=== PATIENT | male | born 1975 | race Hispanic/Latino ===

== ENCOUNTER 2018-09-09 09:11 | Emergency (ER) | payer SELFPAY ==
--- NOTE | 2018-09-09 11:03 | RAD REPORT ---
EXAM DESCRIPTION: RAD - Foot Left 3 View - 09/09/2018 10:54 am CLINICAL HISTORY: Foot pain following blunt force trauma to the plantar surface of the foot COMPARISON: None. FINDINGS: No fracture, dislocation or periosteal reaction. No acute or destructive bony process. No air or foreign body in the soft tissues. IMPRESSION: No acute bone or joint finding. No foreign body.
--- NOTE | 2018-09-09 11:24 | ER ---
Nurse's Notes [facility] Name: Shahzad Spangler Age: 43 yrs Sex: Male : 1975 Arrival Date: 09/09/2018 Time: 09:16 Bed 10 Private MD: Diagnosis: Other sprain of left foot Presentation: 09/09 09:33 Presenting complaint: Patient states: i stepped on a rock this morning and hurt my L hj foot; on the top of the foot;. Transition of care: patient was not received from another setting of care. Onset of symptoms was September 09, 2018. Risk Assessment: Do you want to hurt yourself or someone else? Patient reports no desire to harm self or others. Initial Sepsis Screen: Does the patient meet any 2 criteria? No. Patient's initial sepsis screen is negative. Does the patient have a suspected source of infection? No. Patient's initial sepsis screen is negative. Care prior to arrival: None. 09:33 Method Of Arrival: Ambulatory 09:33 Acuity: TERRY 4 hj Triage Assessment: 09:35 General: Appears in no apparent distress. uncomfortable, Behavior is calm, cooperative, hj appropriate for age. Pain: Complains of pain in left foot Pain currently is 8 out of 10 on a pain scale. Historical: - Allergies: 09:35 No Known Allergies; hj - Home Meds: 09:35 None [Active]; hj - PMHx: 09:35 None; hj - PSHx: 09:35 abdominal surgery; hj - Immunization history:: Adult Immunizations up to date. - Social history:: Smoking status: Patient uses tobacco products, 1 pack per week;, Patient uses alcohol, weekly. - Ebola Screening: : Patient negative for fever greater than or equal to 101.5 degrees Fahrenheit, and additional compatible Ebola Virus Disease symptoms Patient denies exposure to infectious person Patient denies travel to an Ebola-affected area in the 21 days before illness onset. Screenin:36 Abuse screen: Denies threats or abuse. Denies injuries from another. Nutritional hj screening: No deficits noted. Tuberculosis screening: No symptoms or risk factors identified. Fall Risk None identified. Assessment: 09:43 General: Appears in no apparent distress. Behavior is calm, cooperative. Pain: iw Complains of pain in left foot. Neuro: Level of Consciousness is awake, alert, obeys commands, Oriented to person, place, time, situation. Cardiovascular: Patient's skin is warm and dry. Respiratory: Respiratory effort is even, unlabored, Respiratory pattern is regular. Derm: Skin is intact, is healthy with good turgor. Musculoskeletal: Reports pain in left foot. Vital Signs: 09:36 BP 134 / 98; Pulse 76; Resp 18; Temp 98.8(TE); Pulse Ox 100% on R/A; Weight 97.52 kg; hj Height 5 ft. 10 in. (177.80 cm); Pain 9/10; 09:36 Body Mass Index 30.85 (97.52 kg, 177.80 cm) hj ED Course: 09:16 Patient arrived in ED. as 09:34 Triage completed. hj 09:36 Arm band placed on right wrist. hj 09:36 Patient has correct armband on for positive identification. Bed in low position. Call hj light in reach. Side rails up X 1. 09:42 Sarah Vital RN is Primary Nurse. iw 09:45 Josefina Miller F[facility]-C is [facility]. kb 09:45 Jan Rivera MD is Attending Physician. kb 10:49 X-ray completed. Portable x-ray completed in exam room. Patient tolerated procedure ls3 well. 10:54 Foot Left 3 View XRAY In Process Unspecified. EDMS 11:32 No provider procedures requiring assistance completed. Patient did not have IV access iw during this emergency room visit. Administered Medications: No medications were administered Outcome: 11:23 Discharge ordered by MD. kb 11:32 Discharged to home ambulatory. iw 11:32 Condition: good 11:32 Discharge instructions given to patient, Instructed on discharge instructions, follow up and referral plans. medication usage, Demonstrated understanding of instructions, follow-up care, medications, Prescriptions given X 1. 11:33 Patient left the ED. iw Signatures: Dispatcher [employer] EDMS Josefina Miller FNP-C FNP-Beverly Torres as Sarah Vital RN RN Bret Christine RN RN hj Siler, Lynzie ls3 Corrections: (The following items were deleted from the chart) 09:38 09:36 Pulse 76bpm; Resp 18bpm; Pulse Ox 100% RA; Temp 98.8F Temporal; 97.52 kg; Height hj 5 ft. 10 in.; BMI: 30.8; Pain 10; hj
--- NOTE | 2018-09-09 11:25 | EDPHYS ---
Physician Documentation [facility] Name: Shahzad Spangler Age: 43 yrs Sex: Male : 1975 Arrival Date: 09/09/2018 Time: 09:16 Bed 10 Private MD: ED Physician Jan Rivera HPI: 09/09 11:22 This 43 yrs old Male presents to ER via Ambulatory with complaints of Foot kb Pain. 11:22 The patient presents with pain, that is acute. The complaints affect the left foot. kb Context: The problem was sustained outdoors, resulted from stepped on rock and foot twisted, the patient can partially bear weight. Onset: The symptoms/episode began/occurred yesterday. Modifying factors: The symptoms are alleviated by nothing, the symptoms are aggravated by weight bearing. Associated signs and symptoms: Pertinent positives: swelling, Pertinent negatives: calf tenderness, fever, nausea, numbness, rash, tingling, vomiting, warmth, weakness. Severity of symptoms: At their worst the symptoms were moderate, in the emergency department the symptoms are unchanged. The patient has not experienced similar symptoms in the past. The patient has not recently seen a physician. Historical: - Allergies: 09:35 No Known Allergies; hj - Home Meds: 09:35 None [Active]; hj - PMHx: 09:35 None; hj - PSHx: 09:35 abdominal surgery; hj - Immunization history:: Adult Immunizations up to date. - Social history:: Smoking status: Patient uses tobacco products, 1 pack per week;, Patient uses alcohol, weekly. - Ebola Screening: : Patient negative for fever greater than or equal to 101.5 degrees Fahrenheit, and additional compatible Ebola Virus Disease symptoms Patient denies exposure to infectious person Patient denies travel to an Ebola-affected area in the 21 days before illness onset. ROS: 11:21 Constitutional: Negative for fever, chills, and weight loss, Cardiovascular: Negative kb for chest pain, palpitations, and edema, Respiratory: Negative for shortness of breath, cough, wheezing, and pleuritic chest pain, Abdomen/GI: Negative for abdominal pain, nausea, vomiting, diarrhea, and constipation, Back: Negative for injury and pain, Skin: Negative for injury, rash, and discoloration, Neuro: Negative for headache, weakness, numbness, tingling, and seizure. 11:21 MS/extremity: Positive for pain, swelling, tenderness, of the dorsum of left foot. Exam: 11:21 Constitutional: This is a well developed, well nourished patient who is awake, alert, kb and in no acute distress. Head/Face: Normocephalic, atraumatic. Neck: Trachea midline, no thyromegaly or masses palpated, and no cervical lymphadenopathy. Supple, full range of motion without nuchal rigidity, or vertebral point tenderness. No Meningismus. Chest/axilla: Normal chest wall appearance and motion. Nontender with no deformity. No lesions are appreciated. Cardiovascular: Regular rate and rhythm with a normal S1 and S2. No gallops, murmurs, or rubs. Normal PMI, no JVD. No pulse deficits. Respiratory: Lungs have equal breath sounds bilaterally, clear to auscultation and percussion. No rales, rhonchi or wheezes noted. No increased work of breathing, no retractions or nasal flaring. Abdomen/GI: Soft, non-tender, with normal bowel sounds. No distension or tympany. No guarding or rebound. No evidence of tenderness throughout. Skin: Warm, dry with normal turgor. Normal color with no rashes, no lesions, and no evidence of cellulitis. Neuro: Awake and alert, GCS 15, oriented to person, place, time, and situation. Cranial nerves II-XII grossly intact. Motor strength 5/5 in all extremities. Sensory grossly intact. Cerebellar exam normal. Normal gait. 11:21 Musculoskeletal/extremity: Extremities: grossly normal except: noted in the dorsum of left foot: pain, swelling, ROM: intact in all extremities, Circulation is intact in all extremities. Sensation intact. Weight bearing: can bear weight with assistance only. Vital Signs: 09:36 BP 134 / 98; Pulse 76; Resp 18; Temp 98.8(TE); Pulse Ox 100% on R/A; Weight 97.52 kg; hj Height 5 ft. 10 in. (177.80 cm); Pain 9/10; 09:36 Body Mass Index 30.85 (97.52 kg, 177.80 cm) MDM: 09:45 Patient medically screened. kb 11:21 Data reviewed: vital signs, nurses notes. Data interpreted: Pulse oximetry: on room air kb is 100 %. Interpretation: normal. Counseling: I had a detailed discussion with the patient and/or guardian regarding: the historical points, exam findings, and any diagnostic results supporting the discharge/admit diagnosis, radiology results, the need for outpatient follow up, a orthopedic surgeon, to return to the emergency department if symptoms worsen or persist or if there are any questions or concerns that arise at home. 09/09 10:13 Order name: Foot Left 3 View XRAY; Complete Time: 11:09 kb Administered Medications: No medications were administered Disposition: 16:59 Co-signature as Attending Physician, Jan Rivera MD. rn Disposition: 09/09/18 11:23 Discharged to Home. Impression: Other sprain of left foot. - Condition is Stable. - Discharge Instructions: Foot Sprain. - Prescriptions for Diclofenac Sodium 75 mg Oral Tablet, Delayed Release (E.C.) - take 1 tablet by ORAL route 2 times per day As needed; 30 tablet. - Work release form, Medication Reconciliation Form, Thank You Letter, Antibiotic Education, Prescription Opioid Use form. - Follow up: Emergency Department; When: As needed; Reason: Worsening of condition. Follow up: Private Physician; When: 2 - 3 days; Reason: Recheck today's complaints, Continuance of care, Re-evaluation by your physician. Signatures: Dispatcher [employer] Josefina Carcamo, EDYTA-C SUBSTATION INSPECTOR-Sarah Davey RN RN iw Nieto, Roman, MD MD rn Joaquin, Henry, RN RN Corrections: (The following items were deleted from the chart) 11:33 11:23 09/09/2018 11:23 Discharged to Home. Impression: Other sprain of left foot. iw Condition is Stable. Forms are Medication Reconciliation Form, Thank You Letter, Antibiotic Education, Prescription Opioid Use. Follow up: Emergency Department; When: As needed; Reason: Worsening of condition. Follow up: Private Physician; When: 2 - 3 days; Reason: Recheck today's complaints, Continuance of care, Re-evaluation by your physician. kb
== END 2018-09-09 11:33 | disposition home or self-care (01) ==
LOC: ER 09:11
DX: S93.692A Other sprain of left foot, initial encounter (principal); X58.XXXA Exposure to other specified factors, initial encounter; Y93.89 Activity, other specified; Y92.89 Other specified places as the place of occurrence of the external cause; Z72.0 Tobacco use
CPT/HCPCS: 99283

== ENCOUNTER 2018-10-16 10:13 | Emergency (ER) | payer SELFPAY ==
--- NOTE | 2018-10-16 11:23 | EDPHYS ---
Physician Documentation [facility] Name: Shahzad Spangler Age: 43 yrs Sex: Male : 1975 Arrival Date: 10/16/2018 Time: 10:14 Bed 9 Private MD: None, None ED Physician Jan Rivera HPI: 10/16 11:00 This 43 yrs old Male presents to ER via Ambulatory with complaints of Back cp Pain. 11:00 Patient reports missing work due to low back pain for past 2 days. Patient requesting cp note to return to work. Historical: - Allergies: 10:36 No Known Allergies; hb - Home Meds: 10:36 None [Active]; hb - PMHx: 10:36 None; hb - PSHx: 10:36 abdominal surgery; hb - Immunization history:: Adult Immunizations up to date. - Social history:: Smoking status: Patient uses tobacco products, denies chronic smoking, but will smoke occasionally. - Ebola Screening: : No symptoms or risks identified at this time. ROS: 11:05 All other systems are negative. cp Exam: 11:05 Head/Face: Normocephalic, atraumatic. cp 11:05 Constitutional: The patient appears in no acute distress, alert, awake, non-toxic, well developed, well nourished. 11:05 Eyes: Periorbital structures: appear normal, Conjunctiva: normal, no exudate, no injection, Sclera: no appreciated abnormality, Lids and lashes: appear normal, bilaterally. 11:05 ENT: External ear(s): are unremarkable, Nose: is normal, Mouth: is normal. 11:05 Chest/axilla: Inspection: normal. 11:05 Cardiovascular: Rate: normal. 11:05 Respiratory: the patient does not display signs of respiratory distress, Respirations: normal, no use of accessory muscles, no retractions, no splinting, no tachypnea. 11:05 Abdomen/GI: Exam negative for discomfort, distension, guarding, Inspection: abdomen appears normal. 11:05 Back: pain, that is mild, ROM is normal, Straight leg raises: of both lower extremities does not illicit pain. 11:05 Neuro: Motor: moves all fours, strength is normal, Sensation: is normal, Gait: is steady, Deep tendon reflexes are 2+ (normal) in the right patellar, right Achilles, left patellar and left Achilles. Vital Signs: 10:36 BP 158 / 98; Pulse 82; Resp 16; Temp 99.1(TE); Pulse Ox 100% on R/A; Pain 2/10; hb MDM: 10:39 Patient medically screened. cp 11:15 Differential diagnosis: chronic back pain, Pyelonephritis ruptured disc, sprain. cp 11:20 Data reviewed: vital signs, nurses notes, and as a result, I will discharge patient. cp Administered Medications: No medications were administered Disposition: 11:45 Chart complete. cp Disposition: 10/16/18 11:23 Discharged to Home. Impression: Encounter for screening, unspecified. - Condition is Stable. - Discharge Instructions: Form - Return To Work. - Work release form, Medication Reconciliation Form, Thank You Letter, Antibiotic Education, Prescription Opioid Use form. - Follow up: Private Physician; When: As needed; Reason: Worsening of condition. - Problem is new. - Symptoms have improved. Addendum: 10/18/2018 07:12 Co-signature as Attending Physician, Jan Rivera MD. r n Signatures: Jan Rivera MD MD rn Smirch, Shelby, RN RN ss Fco Bautista, SINAN PA cp Riri Baumann RN RN Corrections: (The following items were deleted from the chart) 10/16 11:40 11:23 10/16/2018 11:23 Discharged to Home. Impression: Encounter for screening, ss unspecified. Condition is Stable. Forms are Medication Reconciliation Form, Thank You Letter, Antibiotic Education, Prescription Opioid Use. Follow up: Private Physician; When: As needed; Reason: Worsening of condition. Problem is new. Symptoms have improved. cp
--- NOTE | 2018-10-16 11:23 | ER ---
Nurse's Notes [facility] Name: Shahzad Spangler Age: 43 yrs Sex: Male : 1975 Arrival Date: 10/16/2018 Time: 10:14 Bed 9 Private MD: None, None Diagnosis: Encounter for screening, unspecified Presentation: 10/16 10:34 Presenting complaint: Patient states: Low back pain x 2 days. Pain does not radiate. hb Denies injury/urinary s/s. Transition of care: patient was not received from another setting of care. Onset of symptoms was October 14, 2018. Risk Assessment: Do you want to hurt yourself or someone else? Patient reports no desire to harm self or others. Care prior to arrival: None. 10:34 Method Of Arrival: Ambulatory hb 10:34 Acuity: TERRY 3 hb Historical: - Allergies: 10:36 No Known Allergies; hb - Home Meds: 10:36 None [Active]; hb - PMHx: 10:36 None; hb - PSHx: 10:36 abdominal surgery; hb - Immunization history:: Adult Immunizations up to date. - Social history:: Smoking status: Patient uses tobacco products, denies chronic smoking, but will smoke occasionally. - Ebola Screening: : No symptoms or risks identified at this time. Screenin:39 Abuse screen: Denies threats or abuse. Denies injuries from another. Nutritional ss screening: No deficits noted. Tuberculosis screening: No symptoms or risk factors identified. Fall Risk None identified. Assessment: 11:39 Reassessment: Patient appears in no apparent distress at this time. Patient and/or ss family updated on plan of care and expected duration. Pain level reassessed. Patient is alert, oriented x 3, equal unlabored respirations, skin warm/dry/pink. Vital Signs: 10:36 BP 158 / 98; Pulse 82; Resp 16; Temp 99.1(TE); Pulse Ox 100% on R/A; Pain 2/10; hb ED Course: 10:14 Patient arrived in ED. sb2 10:14 None, None is Private Physician. sb2 10:36 Triage completed. hb 10:36 Arm band placed on right wrist. hb 10:39 Fco Bautista PA is PHCP. cp 10:39 Jan Rivera MD is Attending Physician. cp 11:39 Veronica Goldstein, RN is Primary Nurse. ss 11:39 Patient has correct armband on for positive identification. Bed in low position. Call ss light in reach. 11:40 No provider procedures requiring assistance completed. Patient did not have IV access ss during this emergency room visit. Administered Medications: No medications were administered Outcome: 11:23 Discharge ordered by MD. cp 11:39 Discharged to home ambulatory. ss 11:39 Condition: good 11:39 Discharge instructions given to patient, Instructed on discharge instructions, follow up and referral plans. medication usage, Demonstrated understanding of instructions, follow-up care, medications. 11:40 Patient left the ED. ss Signatures: Veronica Goldstein, DEN RN Fco Bautista PA PA cp Baxter, Heather, RN RN Arlyn Wallis sb2
== END 2018-10-16 11:40 | disposition home or self-care (01) ==
LOC: ER 10:13
DX: Z13.9 Encounter for screening, unspecified (principal); Z72.0 Tobacco use
CPT/HCPCS: 99281

== ENCOUNTER 2019-01-04 03:39 | Emergency (ER) | payer SELFPAY ==
[2019-01-04] MEDS ORDERED: TETANUS & DIPHTHERIA TOX,ADULT 0.5 ML VIAL ONE (04:21)
[2019-01-04] MEDS ORDERED: THIAMINE 200 MG/2 ML INJ ONE (04:23)
[2019-01-04] MEDS ORDERED: MULTIVITAMINS 10 ML VIAL (INJ) IV ONE (04:24)
[2019-01-04] MEDS ORDERED: FOLIC ACID 5 MG/ML VIAL ONE (04:25)
[2019-01-04] MEDS ORDERED: NA CHLORIDE 0.9% 1,000 ML ONE (04:26)
[2019-01-04 04:29] LABS: Absolute Lymphocytes (CBC) 1.8 K/uL (0.7-4.9); Absolute Monocytes 0.5 K/uL (0.1-1.3); Absolute Neutrophil 3.8 K/uL (1.8-8.0); Basophils % 0.8 % (0-1.3); Hematocrit 43.9 % (39.6-49.0); Lymphocytes % 28.7 % (15.3-44.8); MPV 8.9 fL (7.6-11.3); Monocytes % 8.4 % (3.3-12.3); RBC Red Blood Cell Count 5.18 M/uL (4.33-5.43)
[2019-01-04 04:30] LABS: Protime INR 0.91
[2019-01-04 04:50] LABS: ALT/SGPT 31 U/L (12-78); AST/SGOT 20 U/L (15-37); Albumin 4.1 g/dL (3.4-5.0); Alkaline Phosphatase 85 U/L (45-117); BUN Blood Urea Nitrogen 12 mg/dL (7-18); Bicarbonate 23 mmol/L (21-32); Bilirubin Direct < 0.1 mg/dL (0-0.2); Bilirubin Total 0.3 mg/dL (0.2-1.0); Glucose Level 104 mg/dL (74-106); Potassium 3.3 mmol/L (3.5-5.1); Protein, Total 7.8 g/dL (6.4-8.2); Sodium Level 145 mmol/L (136-145)
[2019-01-04] MEDS ORDERED: POTASSIUM CL SA 10 MEQ TAB PO ONE (05:42)
[2019-01-04 05:58] LABS: Barbiturates NEGATIVE (NEGATIVE); Benzodiazepines NEGATIVE (NEGATIVE); Cocaine NEGATIVE (NEGATIVE); METHAMPHETAM NEGATIVE (NEGATIVE); Methadone NEGATIVE (NEGATIVE); Opiates NEGATIVE (NEGATIVE); Phencyclidine NEGATIVE (NEGATIVE); THC Cannibis NEGATIVE (NEGATIVE)
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
[2019-01-04 08:58] LABS: Urine Blood NEGATIVE (NEG); Urine Glucose NEGATIVE (NEG); Urine Protein NEGATIVE (NEG); Urine Specific Gravity 1.015 (1.005-1.030); Urine pH 5.5 (5.0-7.0)
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
--- NOTE | 2019-01-07 11:29 | EKG ---
Test Date: 2019-01-04 Test Time: 04:13:14 Through Operator: TATIANA MEASUREMENT RESULTS: Intervals: Rate: 74 UT: 202 QRSD: 96 QT: 378 QTc: 419 [place]: P: 42 UT: 202 QRS: 68 T: 53 INTERPRETIVE STATEMENTS: Normal sinus rhythm Normal ECG Compared to ECG 01/06/2001 14:32:00 No significant changes Electronically Signed On 01-04-19 16:43:36 CDT by Yo Munoz
== END 2019-01-04 07:07 | disposition home or self-care (01) ==
LOC: ER 03:39
DX: F10.129 Alcohol abuse with intoxication, unspecified (principal); Z04.71 Encounter for examination and observation following alleged adult physical abuse; Z23 Encounter for immunization; Z72.0 Tobacco use
CPT/HCPCS: 36415; 70450; 70486; 71260; 72125; 74177; 76377; 80048; 80076; 80307; 80320; 80329; 81003; 85025; 85610; 85730; 90714; 93005; 96374; 99284; J3411; J7030; Q9967

== ENCOUNTER 2022-06-22 07:38 | Emergency (ER) | payer BC, SELFPAY ==
[2022-06-22] MEDS ORDERED: KETOROLAC 30 MG/ML INJ ONE (08:28)
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
--- NOTE | 2022-06-22 09:36 | RAD REPORT ---
EXAM DESCRIPTION: RAD - Foot Left 2 View - 06/22/2022 8:43 am CLINICAL HISTORY: PAIN COMPARISON: Foot Left 3 View dated 09/09/2018 FINDINGS: Soft tissue swelling is seen along the dorsum of the midfoot. No fracture or dislocation. No aggressive marrow pattern.
[2022-06-24 02:53] VITALS: TEMP 98.2
[2022-06-24 02:59] VITALS: BP 128/90; O2SAT 99
== END 2022-06-22 10:06 | disposition home or self-care (01) ==
LOC: ER 07:38
DX: M79.672 Pain in left foot (principal); Z72.0 Tobacco use
CPT/HCPCS: 96372; 99283

== ENCOUNTER 2022-11-15 08:41 | Emergency (ER) | payer BC ==
--- NOTE | 2022-11-15 09:21 | RAD REPORT ---
EXAM DESCRIPTION: [place] Pa And Lat (2 Views)11/15/2022 9:10 am CLINICAL HISTORY: CONGESTION COMPARISON: Chest Single View dated 10/16/2017 TECHNIQUE: PA and lateral views of the chest. FINDINGS: The lungs are clear. No pneumothorax or effusion. The cardiomediastinal contours are unrem arkable. IMPRESSION: No acute cardiopulmonary process.
[2022-11-15 09:44] LABS: SARS-COV-2 RT PCR NEGATIVE (NEGATIVE)
--- NOTE | 2022-11-15 09:57 | EDPHYS ---
Physician Documentation [facility] Name: Shahzad Baltazar Age: 47 yrs Sex: Male : 1975 Arrival Date: 11/15/2022 Time: 08:44 Bed IW1 Private MD: ED Physician Jono Shrestha HPI: 11/15 09:54 This 47 yrs old Male presents to ER via Ambulatory with complaints of Cough, bs3 Congestion. 09:54 No significant past medical history presents with cough and congestion no fevers or bs3 chills symptoms of been ongoing for 1 week he notes that they are getting better but then got worse and therefore he came in no leg swelling no orthopnea or anything else bothering him. Historical: - Allergies: 08:57 No Known Allergies; ap3 - Home Meds: 08:57 None [Active]; ap3 - PMHx: 08:57 Asthma; ap3 - PSHx: 08:57 Exploratory abdominal surgery; ap3 - Immunization history:: Client reports receiving the 2nd dose of the Covid vaccine. - Social history:: Smoking status: Patient reports the use of cigarette tobacco products, denies chronic smoking, but will smoke occasionally. ROS: 09:54 Constitutional: Negative for fever, chills bs3 09:54 All other systems are negative. Exam: 09:54 Constitutional: This is a well developed, well nourished patient who is awake, alert, bs3 and in no acute distress. Head/Face: Normocephalic, atraumatic. Eyes: Pupils equal round and reactive to light, extra-ocular motions intact. Lids and lashes normal. ENT: mmm, no posterior phyarngeal erythema Neck: Trachea midline, no thyromegaly, no neck stiffness Chest/axilla: Normal chest wall appearance and motion. Nontender with no deformity. No lesions are appreciated. Cardiovascular: Regular rate and rhythm with a normal S1 and S2. symmetric pulses in upper extremities Respiratory: Lungs have equal breath sounds bilaterally, clear to auscultation, no respiratory distress Abdomen/GI: Soft, non-tender, no rebound or guarding MS/ Extremity: Pulses equal, no cyanosis. Neurovascular intact. Full, normal range of motion. Neuro: Awake and alert, GCS 15, oriented to person, place, time, and situation. Cranial nerves II-XII grossly intact. Motor strength 5/5 in all extremities. Sensory grossly intact. Vital Signs: 08:54 Pulse 81; Resp 17; Temp 97.7; Pulse Ox 98% ; Weight 95.25 kg; Height 5 ft. 10 in. ap3 (177.80 cm); 08:56 BP 131 / 95; ap3 08:54 Body Mass Index 30.13 (95.25 kg, 177.80 cm) ap3 MDM: 08:47 Patient medically screened. bs3 09:54 Differential Diagnosis: Bronchitis Influenza Upper Respiratory Infection Viral Syndrome bs3 Pneumonia. Data reviewed: vital signs, nurses notes. Independent interpretation of the following test(s) in the Emergency Department X-Ray: My interpretation is No acute cardiopulmonary disease. Care significantly affected by the following Social Determinants of Health: Poor access to healthcare and/or lack of insurance. ED course: Will rule out pneumonia given symptoms got better then got worse I considered cardiac etiology however he has no orthopnea his legs are without edema I considered pericarditis and myocarditis but his symptoms are not consistent with this I doubt he has an aortic dissection or pneumothorax. 11/15 08:57 Order name: COVID-19/FLU A+B ap3 11/15 09:45 Order name: COVID-19/FLU A+B; Complete Time: 09:56 EDMS 11/15 08:58 Order name: XRAY Chest Pa And Lat (2 Views) bs3 11/15 09:22 Order name: RAD; Complete Time: 09:42 EDMS Administered Medications: No medications were administered Disposition Summary: 11/15/22 09:55 Discharge Ordered Location: Home bs3 Problem: new bs3 Symptoms: are unchanged bs3 Condition: Stable bs3 Diagnosis - Other specified diseases of upper respiratory tract bs3 Followup: bs3 - With: Private Physician - When: 5 - 6 days - Reason: Re-evaluation by your physician Discharge Instructions: - Discharge Summary Sheet bs3 - Upper Respiratory Infection, Adult bs3 Forms: - Medication Reconciliation Form bs3 - Thank You Letter bs3 - Work release form ph - Antibiotic Education bs3 - Prescription Opioid Use bs3 Prescriptions: - Tessalon Perles 100 mg Oral Capsule - take 1 capsule by ORAL route every 8 hours As needed; 15 capsule; Refills: 0, bs3 Product Selection Permitted Signatures: Dispatcher [employer] EDMS Shereen Amanda, DEN RN ap3 Jono Shrestha MD MD bs3
--- NOTE | 2022-11-15 09:57 | ER ---
Nurse's Notes [facility] Name: Shahzad Baltazar Age: 47 yrs Sex: Male : 1975 Arrival Date: 11/15/2022 Time: 08:44 Bed IW1 Private MD: Diagnosis: Other specified diseases of upper respiratory tract Presentation: 11/15 08:54 Chief complaint: Patient states: he has been congested for approx one week, and it ap3 started going away but has been coming back a little worse now. Coronavirus screen: Client presents with at least one sign or symptom that may indicate coronavirus-19. Ebola Screen: No symptoms or risks identified at this time. Initial Sepsis Screen: Does the patient meet any 2 criteria? No. Patient's initial sepsis screen is negative. Does the patient have a suspected source of infection? No. Patient's initial sepsis screen is negative. Risk Assessment: Do you want to hurt yourself or someone else? Patient reports no desire to harm self or others. Onset of symptoms was November 07, 2022. 08:54 Method Of Arrival: Ambulatory ap3 08:54 Acuity: TERRY 4 ap3 Triage Assessment: 08:56 General: Appears in no apparent distress. Behavior is calm, cooperative. Pain: Denies ap3 pain. Neuro: Level of Consciousness is awake, Oriented to person, place, time, situation. Cardiovascular: Patient's skin is warm and dry. Respiratory: Reports cough that is Airway is patent Respiratory effort is even, unlabored, Respiratory pattern is regular, symmetrical. 10:26 Respiratory: Breath sounds are clear bilaterally. ap3 Historical: - Allergies: 08:57 No Known Allergies; ap3 - Home Meds: 08:57 None [Active]; ap3 - PMHx: 08:57 Asthma; ap3 - PSHx: 08:57 Exploratory abdominal surgery; ap3 - Immunization history:: Client reports receiving the 2nd dose of the Covid vaccine. - Social history:: Smoking status: Patient reports the use of cigarette tobacco products, denies chronic smoking, but will smoke occasionally. Screenin:56 [facility] ED Fall Risk Assessment (Adult) History of falling in the last 3 months, ap3 including since admission No falls in past 3 months (0 pts). Abuse screen: Denies threats or abuse. Nutritional screening: No deficits noted. Tuberculosis screening: No symptoms or risk factors identified. Vital Signs: 08:54 Pulse 81; Resp 17; Temp 97.7; Pulse Ox 98% ; Weight 95.25 kg; Height 5 ft. 10 in. ap3 (177.80 cm); 08:56 BP 131 / 95; ap3 08:54 Body Mass Index 30.13 (95.25 kg, 177.80 cm) ap3 ED Course: 08:44 Patient arrived in ED. mr 08:47 Jono Shrestha MD is Attending Physician. bs3 08:55 Triage completed. ap3 08:56 Arm band placed on left wrist. ap3 09:01 COVID-19/FLU A+B Sent. ss 10:26 Patient has correct armband on for positive identification. ap3 10:26 No provider procedures requiring assistance completed. Patient did not have IV access ap3 during this emergency room visit. Administered Medications: No medications were administered Medication: 10:27 VIS not applicable for this client. ap3 Outcome: 09:55 Discharge ordered by . bs3 10:26 Discharged to home ambulatory. ap3 10:26 Condition: good 10:26 Discharge instructions given to patient, Instructed on discharge instructions, follow up and referral plans. medication usage, Demonstrated understanding of medications. 10:27 Patient left the ED. ap3 Signatures: Buffy Molina EshaarnieVeronica, RN Cesia Jamison RN RN ap3 Jono Shrestha MD MD bs3
[2022-11-15 10:32] VITALS: TEMP 97.7; O2SAT 98
[2022-11-15 10:33] VITALS: BP 131/95
== END 2022-11-15 10:27 | disposition home or self-care (01) ==
LOC: ER 08:41
DX: J39.8 Other specified diseases of upper respiratory tract (principal); F17.210 Nicotine dependence, cigarettes, uncomplicated; J45.909 Unspecified asthma, uncomplicated; Z20.822 Contact with and (suspected) exposure to COVID-19
CPT/HCPCS: 0240U; 71046